=== PATIENT | male | born 2005 | race Two or more races ===

== ENCOUNTER 2025-02-22 16:40 | Emergency (ER) | payer OTHER ==
[~2025-02-22] VITALS: Ht 172.7 cm; Wt 77.1 kg
[2025-02-22 17:13] LABS: BASO % 0.4 % (0.1-1.2); EOS # 0.04 (0.04-0.54); EOS % 0.4 % (0.7-7.0); LYMPH # 2.11 (1.18-3.74); LYMPH % 21.8 % (19.3-53.1); MEAN PLATELET VOLUME 11.20 fl (9.4-12.4); MONO # 0.72 (0.24-0.82); MONO % 7.4 % (4.7-12.5); NEUT # 6.74 (1.56-6.13); NEUT % 69.5 % (34.0-71.1); RED CELL DISTRIBUTION WIDTH 12.7 % (11.6-14.4)
[2025-02-22] MEDS ORDERED: 0.9 % SODIUM CHLORIDE 500 ML IV SCH (17:15)
[2025-02-22] MEDS ORDERED: 0.9 % SODIUM CHLORIDE 500 ML IV ONE (17:15)
[2025-02-22 17:24] LABS: ERYTHROCYTE SEDIMENTATION RATE 5 mm/hr (0-15)
[2025-02-22] MEDS ORDERED: FAMOTIDINE/PF 20 MG/2 ML VIAL IV STA (17:38)
[2025-02-22] MEDS ORDERED: ONDANSETRON HCL 2 MG/ML VIAL IV STA (17:38)
[2025-02-22] MEDS ORDERED: FAMOTIDINE/PF 20 MG/2 ML VIAL ONE (17:41)
[2025-02-22] MEDS ORDERED: ONDANSETRON HCL 2 MG/ML VIAL ONE (17:41)
[2025-02-22 17:58] LABS: ALT/SGPT 23 U/L (12-78); AST/SGOT 16 U/L (15-37); BILIRUBIN TOTAL 0.77 mg/dL (0.3-1.2); BUN CREA RATIO 11 (7.0-25.0); CREATININE SERUM 1.49 mg/dL (0.70-1.30); GFR 60.13; GLOBULINA 3.3 G/DL (2.4-3.5); GLUCOSE FASTING 110 mg/dL (65-100); INR 1.06; OSMOLALITY SERUM 279 MOSM/KG (275-295)
[2025-02-22 18:33] LABS: URINE APPEARANCE Clear; URINE BILIRRUBIN Negative (NEGATIVE); URINE BLOOD Negative; URINE COLOR Yellow; URINE GLUCOSE Negative (NEGATIVE); URINE KETONE 15 (NEGATIVE); URINE LEUKOCYTE Negative; URINE NITRATE Negative; URINE PROTEIN Negative (NEGATIVE); URINE UROBILINOGEN 0.2 E.U./dl
[2025-02-22 18:36] LABS: URINE BACTERIA 1.1 uL (0.0-1933); URINE CAST 0.00 uL (0.0-1.40); URINE EPITHELIAL CELLS 1.3 uL (0.0-38.8); URINE RBC 2.9 uL (0.0-20.8); URINE WBC 2.7 uL (0.0-23.2)
[2025-02-22 18:56] LABS: COCAINE NEGATIVE (NEGATIVE); METHADONE NEGATIVE (NEGATIVE); OPIATES NEGATIVE (NEGATIVE); THC ( Cannabinoids) POSITIVE (NEGATIVE)
[2025-02-22] MEDS ORDERED: PEPCID AC20 MG PO (23:03)
[2025-02-22] MEDS ORDERED: PRILOSEC OTC20 MG PO (23:03)
[2025-02-22] MEDS ORDERED: DICY20TA PO (23:03)
[2025-02-22 23:26] VITALS: BP 120/76; O2SAT 100
== END 2025-02-22 23:27 | disposition home or self-care (01) ==
LOC: EMR PED 16:40 → ER 16:40 → EMR PED 17:08 → ER 23:27
PROVIDERS: Pediatrics
DX: R10.9 Unspecified abdominal pain (principal); K29.70 Gastritis, unspecified, without bleeding